=== PATIENT | male | born 1965 | race Caucasian/White ===

== ENCOUNTER 2024-03-27 14:10 | Emergency (ER) | payer OTHER ==
--- NOTE | 2024-03-27 14:34 | ER ---
Nurse's Notes [facility] Name: Simone Ambriz Age: 59 yrs Sex: Male : 1965 Arrival Date: 03/27/2024 Time: 14:10 Bed 14 Private MD: Diagnosis: Unilateral inguinal hernia, without obstruction or gangrene Presentation: 03/27 14:10 Chief complaint: Patient states: Hernia to L groin. Coronavirus screen: Vaccine status: ph Patient reports receiving the 2nd dose of the covid vaccine. Ebola Screen: No symptoms or risks identified at this time. Initial Sepsis Screen: Does the patient meet any 2 criteria? No. Patient's initial sepsis screen is negative. Does the patient have a suspected source of infection? No. Patient's initial sepsis screen is negative. Risk Assessment: Do you want to hurt yourself or someone else? Patient reports no desire to harm self or others. Onset of symptoms was March 27, 2024. 14:10 Method Of Arrival: Law Enforcement: [place] [employer] 14:10 Acuity: TARA 4 ph Triage Assessment: 14:13 General: Appears in no apparent distress. Behavior is calm, cooperative. Pain: ph Complains of pain in left femoral area. Neuro: Level of Consciousness is awake, alert, obeys commands, Oriented to person, place, time, situation. Derm: Skin is pink, warm \T\ dry. Historical: - Allergies: 14:10 No Known Allergies; ph - Immunization history:: Adult Immunizations up to date. - Infectious Disease History:: Denies. - Social history:: Smoking status: unknown. Screenin:33 [facility] ED Fall Risk Assessment (Adult) History of falling in the last 3 months, ph including since admission No falls in past 3 months (0 pts) Confusion or Disorientation No (0 pts) Intoxicated or Sedated No (0 pts) Impaired Gait Yes (1 pt) Mobility Assist Device Used No (0 pt) Altered Elimination No (0 pt) Score/Fall Risk Level 3 or more points = High Risk Oriented to surroundings, Maintained a safe environment, Hourly rounding (assess needs \T\ fall precautionary measures) done. Abuse screen: Denies threats or abuse. Denies injuries from another. Nutritional screening: No deficits noted. Tuberculosis screening: No symptoms or risk factors identified. Assessment: 14:13 Reassessment: Dr Rangel at bedside to reduce L inguinal hernia. General: SEE TRIAGE ph ASSESSMENT. Vital Signs: 14:10 BP 148 / 98; Pulse 91; Resp 18; Temp 97.9; Pulse Ox 98% on R/A; ph ED Course: 14:13 Patient arrived in ED. ph 14:14 Dalton Rangel DO is Attending Physician. ms3 14:14 Debbie Smith, RN is Primary Nurse. ph 14:31 Triage completed. ph 14:33 Arm band placed on right wrist. ph 14:33 No provider procedures requiring assistance completed. Patient did not have IV access ph during this emergency room visit. 14:34 Patient has correct armband on for positive identification. Bed in low position. Call ph light in reach. Side rails up X 1. Pulse ox on. NIBP on. Administered Medications: No medications were administered Medication: 14:33 VIS not applicable for this client. ph Outcome: 14:15 Discharge ordered by MD. ms3 14:34 Discharged to Law Enforcement ph 14:34 Condition: good 14:34 Discharge instructions given to patient, Instructed on discharge instructions, follow up and referral plans. Demonstrated understanding of instructions, follow-up care, 14:34 Patient left the ED. ph Signatures: Debbie Smith RN RN ph Dalton Rangel DO DO ms3
--- NOTE | 2024-03-27 14:34 | EDPHYS ---
Physician Documentation [facility] Name: Simone Ambriz Age: 59 yrs Sex: Male : 1965 Arrival Date: 03/27/2024 Time: 14:10 Bed 14 Private MD: ED Physician Dalton Rangel HPI: 03/27 14:16 This 59 yrs old Male presents to ER via Unassigned with complaints of Left inguinal ms3 hernia pain. 14:16 . ms3 18:32 Simone Ambriz is a 59-year-old male presenting to the Emergency Department with ms3 complaints of an inguinal hernia on the left side that is not reducible. He reports a history of a similar hernia on the right side that was surgically repaired without complications. The current hernia is associated with severe, pounding pain rated at 9 out of 10, which occurs in waves. The patient has tried various interventions such as leg elevation and other maneuvers attempted by a half-way doctor, but these have only increased the pain. He reports that the hernia has been present for months, with episodes of protrusion occurring every two to three weeks. The patient is scheduled for hernia surgery at [facility] in [place].. Historical: - Allergies: 14:10 No Known Allergies; ph - Immunization history:: Adult Immunizations up to date. - Infectious Disease History:: Denies. - Social history:: Smoking status: unknown. ROS: 18:32 Constitutional: Negative for fever, and chills. Cardiovascular: Negative for chest ms3 pain, and palpitations. Respiratory: Negative for shortness of breath, cough, wheezing, and pleuritic chest pain, 18:32 Abdomen/GI: Positive for Left inguinal hernia, Exam: 18:32 Constitutional: This is a well developed, well nourished patient who is awake, alert, ms3 and in no acute distress. Chest/axilla: Normal chest wall appearance and motion. Nontender with no deformity. Cardiovascular: Regular rate and rhythm with a normal S1 and S2. No gallops, murmurs, or rubs. Normal PMI, no JVD. No pulse deficits. Respiratory: Lungs have equal breath sounds bilaterally, clear to auscultation and percussion. No rales, rhonchi or wheezes noted. No increased work of breathing, no retractions or nasal flaring. 18:32 Abdomen/GI: Inspection: abdomen appears normal, Bowel sounds: normal, Palpation: abdomen is soft and non-tender, in all quadrants, Hernia: noted in the left inguinal area, tenderness, that is moderate, hernia reducible, Vital Signs: 14:10 BP 148 / 98; Pulse 91; Resp 18; Temp 97.9; Pulse Ox 98% on R/A; ph MDM: 14:14 Medical Screening Exam initiated ms3 18:32 Differential diagnosis: non-specific abd pain, inguinal hernia. Data reviewed: vital ms3 signs, nurses notes, and as a result, I will discharge patient. Counseling: I had a detailed discussion with the patient and/or guardian regarding the historical points, exam findings, and any diagnostic results supporting the discharge/admit diagnosis, the need for outpatient follow up, to return to the emergency department if symptoms worsen or persist or if there are any questions or concerns that arise at home. Special discussion: I discussed with the patient/guardian in detail that at this point there is no indication for admission to the hospital. It is understood, however, that if the symptoms persist or worsen the patient needs to return immediately for re-evaluation. ED course: Left inguinal hernia reduced without complication. Patient notes improvement in his pain after reduction. Patient concerned for hernia coming out at the half-way after discharge. Discussed with patient necessity to not strain or do activities that would increase his intra-abdominal pressure such as lifting. Patient understands and agrees with plan. All questions were answered. Return precautions discussed include worsening symptoms, abdominal pain, vomiting, or any other concerns. Patient states he has an appointment for hernia repair surgery scheduled [facility] currently.. Administered Medications: No medications were administered Disposition: 18:48 Chart complete. ms3 Disposition Summary: 03/27/24 14:15 Discharge Ordered Notes: Location: Home ms3 Condition: Stable ms3 Diagnosis - Unilateral inguinal hernia, without obstruction or gangrene ms3 Followup: ms3 - With: Private Physician - When: 2 - 3 days - Reason: Recheck today's complaints Discharge Instructions: - Discharge Summary Sheet ms3 - Inguinal Hernia, Adult ms3 Forms: - Medication Reconciliation Form ms3 - Antibiotic Education ms3 - Prescription Opioid Use ms3 - Patient Portal Instructions ms3 - Leadership Thank You Letter ms3 Signatures: Debbie Smith RN RN ph Dalton Rangel, DO ms3
[2024-03-27 14:48] VITALS: BP 148/98; TEMP 97.9; O2SAT 98
== END 2024-03-27 14:34 | disposition home or self-care (01) ==
LOC: ER 14:10
DX: K40.90 Unilateral inguinal hernia, without obstruction or gangrene, not specified as recurrent (principal)
CPT/HCPCS: 99283